=== PATIENT | male | born 1960 | race Caucasian/White ===

== ENCOUNTER → 2016-11-17 | Day surgery (SDC) | payer BC ==
[~2016-11-17] MED LIST: Lactated Ringers 1,000 ML IV SCH; Propofol 200 MG/20 ML SDV IV ONE
[2016-11-17 15:26] VITALS: BP 155/98
--- NOTE | 2016-11-20 09:17 | OR ---
DATE OF OPERATION: 11/17/2016 PREOPERATIVE DIAGNOSIS: SCREENING COLONOSCOPY. POSTOPERATIVE DIAGNOSIS: SCREENING COLONOSCOPY. SURGEON: Ki Park MD PROCEDURE: FULL LENGTH COLONOSCOPY WITH HYPERPLASTIC POLYP REMOVAL X1. ANESTHESIA: MINISTER due to elevated BMI. COMPLICATIONS: None. SPECIMEN: Hyperplastic polyp, rectal vault. FINDINGS: 1. Full-length colonoscopy. 2. Minimal sigmoid diverticulosis. 3. Small hyperplastic polyp, proximal rectal vault. RECOMMENDATIONS: Routine colonoscopy every 10 years. INDICATIONS: The patient was in for a routine physical. He has never had a prior colonoscopy. We recommended it due to his age. PROCEDURE: THE PATIENT WAS PREPPED AND DRAPED, PLACED IN THE LEFT LATERAL DECUBITUS POSITION. A LUBRICATED OLYMPUS COLONOSCOPE WAS INSERTED AND EASILY ADVANCED TO THE CECUM. DIRECT VISUALIZATION OF THE ILEOCECAL VALVE AND APPENDICEAL ORIFICE WAS ACCOMPLISHED. BOWEL PREP WAS ADEQUATE. UPON WITHDRAWAL OF THE SCOPE, THE CECUM ASCENDING TRANSVERSE COLON APPEARED BENIGN THROUGHOUT THE ENTIRE DESCENDING AND SIGMOID AREA FOUND NO POLYPS, MASS, ULCERATION, BLEEDING SITES. NO VASCULAR ABNORMALITIES OR SIGNS OF COLITIS. THERE WERE A FEW SCATTERED DIVERTICULA IN THE DISTAL SIGMOID VERY MINIMAL IN SEVERITY. IN THE PROXIMAL RECTAL VAULT, THE PATIENT HAD A SMALL FLAT HYPERPLASTIC APPEARING POLYP REMOVED IN ITS ENTIRETY WITH FORCEPS BIOPSY X1. THE REST OF THE RECTAL VAULT APPEARED BENIGN. RETROFLEXION SCOPE IN THE RECTUM SHOWED NO PERIANAL LESIONS. AIR WAS THEN SUCTIONED, AND THE SCOPE REMOVED WITHOUT COMPLICATION. PIPPA/NURIS /[id number]
== END ==
LOC: CC.SDS 11:32
PROVIDERS: ATTEND Family Medicine
DX: Z12.11 Encounter for screening for malignant neoplasm of colon (principal); K57.30 Diverticulosis of large intestine without perforation or abscess without bleeding; N40.1 Benign prostatic hyperplasia with lower urinary tract symptoms; R35.1 Nocturia; E66.3 Overweight; Z78.9 Other specified health status; Z87.891 Personal history of nicotine dependence; Z72.0 Tobacco use
CPT/HCPCS: 45380; J2704; J7120